=== PATIENT | female | born 1940 | race Caucasian/White ===

== ENCOUNTER 2022-05-15 08:59 | Emergency (ER) | payer MEDICARE ==
[~2022-05-15] VITALS: Ht 157.5 cm; Wt 88.0 kg
[~2022-05-15 08:59] MED LIST: ASPIRIN 8181 MG PO; ATENOLOL25 MG PO; AUGMENTIN875TAB PO; CIPROFLOXACN500 MG PO; FLONASE NASAL50 MCG; NITREK0.4 MG/HR TD; SIMVASTATIN20 MG PO; XARELTO20 MG PO
[2022-05-15] MEDS ORDERED: TRAMADOL HYDROC50 M1 PO (09:58)
[2022-05-15] MEDS ORDERED: ZOFRAN4 MG/TAB PO (09:58)
[2022-05-15 10:23] VITALS: BP 143/65
== END 2022-05-15 10:47 | disposition home or self-care (01) ==
LOC: ED 08:59
DX: M54.50 Low back pain, unspecified (principal); I10 Essential (primary) hypertension; Z79.01 Long term (current) use of anticoagulants